=== PATIENT | male | born 1965 | race Caucasian/White ===

== ENCOUNTER → 2019-01-05 | Outpatient (CLI) | payer BC, OTHER ==
--- NOTE | 2019-01-05 13:07 | REP ---
AP pelvis two views: There is a comminuted nondisplaced fracture of the right humeral head. There is advanced osteoarthritis of the hips bilaterally. The acromioclavicular joints are unremarkable. Mineralization is normal. Impression: Comminuted nondisplaced fracture of the right humeral head. Right hip two views: There is a comminuted nondisplaced fracture of the humeral head. There is no dislocation. There is advanced osteoarthritis. Electronically Signed by Zachary Leone MD 01/05/2019 12:59 P
--- NOTE | 2019-01-05 13:10 | REP ---
Lumbar spine seven views including lateral views with flexion and extension: There are no comparisons. Vertebral body heights and alignment are normal. There is no listhesis. There is no listhesis on the lateral views with flexion or extension. There is no spondylolysis. There is disc space narrowing and osteophytic formation at L1-2 compatible with degenerative disc disease. The remainder of the disc spaces are normal. There are small anterior osteophytes at L 2334 compatible with mild degenerative disc disease. The pedicles and sacroiliac articulations are unremarkable. The facet articulations are unremarkable. Impression: There is no evidence of listhesis including the flexion and extension views. There is degenerative disc disease as described. Otherwise, negative lumbar spine. Electronically Signed by Zachary Leone MD 01/05/2019 01:01 P
[2019-01-05 17:52] LABS: BASO # 0.1 10^3/uL (0.0-0.2); BASO % 1.1 % (0.0-1.0); EOS # 0.3 10^3/uL (0.0-0.50); EOS % 5.2 % (0.0-3.0); HEMOGLOBIN 15.5 g/dl (13.5-17.5); LYMPH # 1.7 10^3/uL (1.5-4.5); LYMPH % 27.7 % (24.0-44.0); MEAN CORPUSCULAR VOLUME 87.9 fl (80.0-96.0); MONO # 0.5 10^3/uL (0.0-0.8); NEUTROPHILS # 3.5 10^3/uL (1.8-7.7); NEUTROPHILS % 57.8 % (36.0-66.0); PLATELET COUNT, AUTOMATED 282 10^3/uL (150-450); RED BLOOD COUNT 5.35 10^6/uL (4.30-6.10); WHITE BLOOD COUNT 6.1 10^3/uL (4.0-10.0)
[2019-01-05 18:27] LABS: HEMOGLOBIN A1c 5.8 %
[2019-01-05 18:33] LABS: ALBUMIN 4.5 GM/DL (3.2-5.2); ALT/SGPT 49 U/L (12-78); BILIRUBIN,TOTAL 0.6 MG/DL (0.2-1.0); BLOOD UREA NITROGEN 28 MG/DL (7-18); CALCIUM LEVEL 8.9 MG/DL (8.5-10.1); CARBON DIOXIDE LEVEL 26 MEQ/L (21-32); CHLORIDE LEVEL 107 MEQ/L (98-107); CHOLESTEROL LEVEL 203 MG/DL (<200); FREE T4 1.12 NG/DL (0.76-1.46); GLOMERULAR FILTRATION RATE > 60.0 (>56); GLUCOSE, FASTING 93 MG/DL (70-100); HDL CHOLESTEROL 34 MG/DL (>40); LDL CHOLESTEROL 141 MG/DL (<100); NON-HDL-C 169 MG/DL; POTASSIUM SERUM 4.6 MEQ/L (3.5-5.1); SODIUM LEVEL 140 MEQ/L (136-145); TOTAL PROTEIN 7.7 GM/DL (6.4-8.2); TRIGLYCERIDES LEVEL 140 MG/DL (<150)
== END ==
LOC: M WUC 11:37
PROVIDERS: ATTEND Physician Assistant
DX: E78.5 Hyperlipidemia, unspecified (principal); Z13.29 Encounter for screening for other suspected endocrine disorder; M54.17 Radiculopathy, lumbosacral region

== ENCOUNTER → 2019-02-20 | Outpatient (CLI) | payer BC, OTHER ==
--- NOTE | 2019-02-20 15:45 | REP ---
CT RIGHT HIP: Axial CT right hip performed with sagittal and coronal reconstruction images. No acute fracture or dislocation is seen. There is moderate narrowing of the superior aspect of the right hip joint with subchondral sclerosis. There is mild to moderate diffuse acetabular spurring. Moderate ring osteophytosis is noted of the femoral head. There is adjacent hypertrophic spur like calcification along the anterior aspect of the femoral neck likely from prior trauma. Oval calcification separate from the anterior acetabulum lies along the anterior aspect of the femoral head and measures approximately 2.8 cm in length and approximately 6 mm in thickness. Moderate to large posterior acetabular spur and adjacent femoral head spur abut each other. There is mild diffuse narrowing and subchondral sclerosis of the right sacroiliac joint with mild spurring at the anterior margin of the joint. IMPRESSION: Arthritic and old posttraumatic changes right hip as discussed above. Electronically Signed by Zachary Shay MD 02/20/2019 04:58 P
== END ==
LOC: M RAD 13:23
PROVIDERS: ATTEND Orthopaedic Surgery
DX: M25.551 Pain in right hip (principal)

== ENCOUNTER 2019-03-15 07:48 | Day surgery (SDC) | payer BC, OTHER ==
[~2019-03-15] VITALS: Ht 193 cm; Wt 137.4 kg
[2019-03-15] MEDS: NS 1,000 ML IV ONE (07:00)
--- NOTE | 2019-03-15 08:49 | ROOR ---
Patient Name: Wiley Monge Procedure Date: 03/15/2019 8:32 AM Date of : 1965 Age: 53 Room: [facility] Gender: Male Note Status: Finalized Procedure: Colonoscopy Indications: Screening for colorectal malignant neoplasm Providers: Guero Benitez Jr, MD Referring MD: Kacey KELLOGG DO Requesting Provider: Medicines: Propofol per Anesthesia Complications: No immediate complications. Procedure: Pre-Anesthesia Assessment: - Prior to the procedure, a History and Physical was performed, and patient medications and allergies were reviewed. The patient is competent. The risks and benefits of the procedure and the sedation options and risks were discussed with the patient. All questions were answered and informed consent was obtained. Patient identification and proposed procedure were verified by the physician and the nurse in the pre-procedure area and in the procedure room. Mental Status Examination: alert and oriented. Airway Examination: normal oropharyngeal airway and neck mobility. Respiratory Examination: clear to auscultation. CV Examination: normal. ASA Grade Assessment: II - A patient with mild systemic disease. After reviewing the risks and benefits, the patient was deemed in satisfactory condition to undergo the procedure. The anesthesia plan was to use moderate sedation / analgesia (conscious sedation). Immediately prior to administration of medications, the patient was re-assessed for adequacy to receive sedatives. The heart rate, respiratory rate, oxygen saturations, blood pressure, adequacy of pulmonary ventilation, and response to care were monitored throughout the procedure. The physical status of the patient was re-assessed after the procedure. The Colonoscope was introduced through the anus and advanced to the cecum, identified by appendiceal orifice and ileocecal valve. The colonoscopy was performed without difficulty. The patient tolerated the procedure well. The quality of the bowel preparation was adequate. Findings: The rectum, recto-sigmoid colon, descending colon, transverse colon, ascending colon, cecum, appendiceal orifice and ileocecal valve appeared normal. A diminutive polyp was found in the sigmoid colon. The polyp was removed with a cold snare. Resection and retrieval were complete. Impression: - The rectum, recto-sigmoid colon, descending colon, transverse colon, ascending colon, cecum, appendiceal orifice and ileocecal valve are normal. - One diminutive polyp in the sigmoid colon, removed with a cold snare. Resected and retrieved. Recommendation: - Discharge patient to home (ambulatory). - Repeat colonoscopy in 5-10 years for surveillance based on pathology results. - Telephone my office for pathology results in 1 week. Guero Benitez MD Guero Benitez Jr, MD 03/15/2019 8:48:44 AM Electronically signed by Guero Benitez Jr, MD Number of Addenda: 0 Note Initiated On: 03/15/2019 8:32 AM Estimated Blood Loss: Estimated blood loss: none.
[2019-03-15] MEDS ORDERED: LIDOCAINE 2% INJ 100 MG/5 ML SDV (FOR ANES.) As Ordered ONE (08:58)
[2019-03-15] MEDS ORDERED: PROPOFOL 500 MG/50 ML VIAL As Ordered ONE (08:58)
[2019-03-15 09:05] VITALS: BP 127/77
== END 2019-03-15 09:13 | disposition home or self-care (01) ==
LOC: M OPP 07:48
PROVIDERS: ATTEND Surgery
DX: Z12.11 Encounter for screening for malignant neoplasm of colon (principal); D12.5 Benign neoplasm of sigmoid colon; Z87.891 Personal history of nicotine dependence; Z85.46 Personal history of malignant neoplasm of prostate; Z91.018 Allergy to other foods

== ENCOUNTER → 2019-06-22 | Outpatient (REF) | payer BC, OTHER ==
[2019-06-22 16:00] LABS: APPEARANCE, URINE CLEAR (CLEAR); BACTERIA, URINE AUTO NEGATIVE (NEGATIVE); BILIRUBIN, URINE AUTO NEGATIVE (NEGATIVE); BLOOD, URINE BLOOD NEGATIVE (NEGATIVE); COLOR, URINE YELLOW (YELLOW); GLUCOSE, URINE (UA) AUTO NEGATIVE (NEGATIVE); KETONE, URINE AUTO NEGATIVE (NEGATIVE); LEUKOCYTE ESTERASE, URINE AUTO NEGATIVE (NEGATIVE); MUCUS, URINE SMALL (NEGATIVE); NITRITE, URINE AUTO NEGATIVE (NEGATIVE); PROTEIN, URINE AUTO NEGATIVE (NEGATIVE); RBC, URINE AUTO 1 /HPF (0-3); SQUAMOUS EPITHELIAL CELL UR AU 0 /HPF (0-6); UROBILINOGEN, URINE AUTO 0.2 mg/dL (0.0-2.0); WBC, URINE AUTO 0 /HPF (0-3)
== END ==
LOC: M LAB REF 15:24
PROVIDERS: ATTEND Physician Assistant
DX: Z01.818 Encounter for other preprocedural examination (principal)

== ENCOUNTER 2020-06-20 12:27 | Emergency (ER) | payer BC, OTHER ==
[~2020-06-20] VITALS: Ht 195.6 cm; Wt 142.3 kg
[2020-06-20] MEDS ORDERED: ATOR40TA75 PO (12:35)
[2020-06-20] MEDS ORDERED: ENAL20TA11 PO (12:35)
[2020-06-20] MEDS ORDERED: IBUP-1022 PO (13:10)
[2020-06-20] MEDS ORDERED: SOMA350T PO ×3 (13:10→13:26)
[2020-06-20] MEDS ORDERED: KETOROLAC 60MG 2ML VIAL IM ONE (13:15)
[2020-06-20] MEDS ORDERED: diazePAM 10MG/2ML SYRINGE (J3360 PER 5MG) IM ONE (13:15)
[2020-06-20 14:10] VITALS: BP 164/74
== END 2020-06-20 14:11 | disposition home or self-care (01) ==
LOC: M ED 12:27
DX: S39.012A Strain of muscle, fascia and tendon of lower back, initial encounter (principal); X50.0XXA Overexertion from strenuous movement or load, initial encounter; Y92.9 Unspecified place or not applicable; Y93.9 Activity, unspecified; Y99.9 Unspecified external cause status; I10 Essential (primary) hypertension; G47.33 Obstructive sleep apnea (adult) (pediatric); Z79.899 Other long term (current) drug therapy
CPT/HCPCS: 96372; 99283; J1885; J3360

== ENCOUNTER → 2021-07-07 | Outpatient (CLI) | payer BC, OTHER ==
[~2021-07-07] MED LIST: ATOR40TA75 PO; ENAL20TA11 PO; IBUP-1022 PO; SOMA350T PO
== END ==
LOC: M PLAIMG 10:49
PROVIDERS: ATTEND Physician Assistant
DX: H81.13 Benign paroxysmal vertigo, bilateral (principal)

== ENCOUNTER → 2021-08-05 | Outpatient (CLI) | payer BC, OTHER ==
[2021-08-05 11:14] LABS: PLATELET COUNT, AUTOMATED 259 10^3/uL (150-450)
[2021-08-05 11:26] LABS: INR 1.06; PROTHROMBIN TIME 14.2 SECONDS (12.7-14.5)
[2021-08-05 11:27] LABS: PARTIAL THROMBOPLASTIN TIME 36.2 SECONDS (25.9-37.0)
== END ==
LOC: M LAB 10:31
PROVIDERS: ATTEND Physical Medicine & Rehabilitation
DX: M51.26 Other intervertebral disc displacement, lumbar region (principal)

== ENCOUNTER → 2021-08-19 | Outpatient (REF) | LOC: M PLAIMG 12:20 | PROVIDERS: ATTEND Internal Medicine | DX: M25.521 Pain in right elbow (principal); M51.36 Other intervertebral disc degeneration, lumbar region ==

== ENCOUNTER → 2022-08-04 | Outpatient (CLI) | payer OTHER | LOC: M RAD 07:10 | PROVIDERS: ATTEND Orthopaedic Surgery | DX: M48.56XA Collapsed vertebra, not elsewhere classified, lumbar region, initial encounter for fracture (principal) | CPT/HCPCS: 78315; A9503 ==

== ENCOUNTER 2024-09-13 08:59 | Day surgery (SDC) | payer MEDICARE, BC ==
[~2024-09-13] VITALS: Ht 195.6 cm; Wt 125.7 kg
[~2024-09-13 08:59] MED LIST changes: +ENAL1TAB52 PO; -ENAL20TA11 PO; +OMEP40CA5 PO; +SEMA2PEN SC
[2024-09-13] MEDS ORDERED: propofoL 200 MG/20 ML VIAL As Ordered ONE (10:17)
[2024-09-13] MEDS ORDERED: LIDOCAINE 2% 100MG/5ML SDV (FOR ANES.) As Ordered ONE (10:17)
[2024-09-13] MEDS ORDERED: GLYCOPYRROLATE INJ 0.2 MG/ML 2 ML VIAL As Ordered ONE (10:21)
[2024-09-13 10:37] VITALS: TEMP 97.5
[2024-09-13 11:01] VITALS: BP 99/54; O2SAT 96
== END 2024-09-13 11:02 | disposition home or self-care (01) ==
LOC: M OPP 08:59
PROVIDERS: ATTEND Surgery
DX: D12.4 Benign neoplasm of descending colon (principal); Z86.0100 Personal history of colon polyps, unspecified; G47.30 Sleep apnea, unspecified; Z79.85 Long-term (current) use of injectable non-insulin antidiabetic drugs; Z79.899 Other long term (current) drug therapy
CPT/HCPCS: 45385; 88305; J1596